=== PATIENT | male | born 1945 | race Asian ===

== ENCOUNTER 2022-12-10 05:18 | Day surgery (SDC) | payer MEDICARE ==
[2022-12-08 12:02] LABS: COVID AG,FIA SOURCE NASAL SWAB
[~2022-12-10] VITALS: Ht 165.1 cm; Wt 63.6 kg
[~2022-12-10 05:18] MED LIST: LOSA1TAB40 PO; METF-446 PO; METO-558 PO; MULT-1203 PO; TAMS-13 PO
[2022-12-10] MEDS ORDERED: EPINEPHrine 1:1,000 [1 MG/ML] VIAL ET ONE (05:19)
[2022-12-10] MEDS ORDERED: TETRACAINE HCL/PF 0.5% 4 ML OPHTHALMIC SOLUTION OD ONE (05:19)
[2022-12-10] MEDS ORDERED: BALANCED SALT 15 ML OPHTHALMIC IRRIG.SOLN IO ONE ×2 (05:19)
[2022-12-10] MEDS ORDERED: EPINEPHrine 1:10,000 [1 MG/10 ML] SYRINGE IVP ONE (05:19)
[2022-12-10] MEDS ORDERED: POVIDONE-IODINE 5% 30 ML OPHTHALMIC SOLUTION OD ONE ×2 (05:19)
[2022-12-10] MEDS ORDERED: LIDOCAINE/PF 1% 2 ML VIAL CAUDAL ONE ×2 (05:19)
[2022-12-10] MEDS ORDERED: CHONDR SULF A SOD/HYALURONATE 1.05 ML KIT IO ONE ×2 (05:19)
[2022-12-10] MEDS ORDERED: RINGERS SOLUTION,LACTATED 500 ML IV ONE ×2 (05:29→07:30)
[2022-12-10] MEDS ORDERED: PHENYLEPHRINE HCL 2.5% 2 ML OPHTHALMIC SOLUTION ONE (05:30)
[2022-12-10] MEDS ORDERED: TROPICAMIDE 1% 2 ML OPHTHALMIC SOLUTION ONE (05:30)
[2022-12-10] MEDS ORDERED: MOXIFLOXACIN HCL 0.5% 3 ML OPHTHALMIC SOLUTION ONE (05:30)
[2022-12-10] MEDS ORDERED: KETOROLAC TROMETHAMINE 0.5% 5 ML OPHTHALMIC SOLUTION ONE (05:30)
[2022-12-10] MEDS: KETOROLAC TROMETHAMINE 0.5% 5 ML OPHTHALMIC SOLUTION OS SCH ×2 (06:24→06:34)
[2022-12-10] MEDS: MOXIFLOXACIN HCL 0.5% 3 ML OPHTHALMIC SOLUTION OS SCH ×2 (06:24→06:34)
[2022-12-10] MEDS: TROPICAMIDE 1% 2 ML OPHTHALMIC SOLUTION OS SCH ×2 (06:24→06:34)
[2022-12-10] MEDS: PHENYLEPHRINE HCL 2.5% 2 ML OPHTHALMIC SOLUTION OS SCH ×2 (06:24→06:34)
[2022-12-10] MEDS ORDERED: ASPI-1444 PO (06:32)
[2022-12-10] MEDS ORDERED: NIFE90TA45 PO (06:32)
[2022-12-10] MEDS ORDERED: METO-408 PO (06:32)
[2022-12-10] MEDS ORDERED: FERR325T23 PO (06:32)
[2022-12-10 06:41] LABS: GLUCOMETER DEV NAME(LOC) SDS.; GLUCOSE,POINT OF CARE 139 MG/DL (70-110)
[2022-12-10] MEDS ORDERED: MIDAZOLAM HCL 2 MG/2 ML VIAL IVP ONE (12:00)
[2022-12-10] MEDS ORDERED: FentaNYL CITRATE PF 100 MCG/2 ML VIAL IVP ONE (12:00)
== END 2022-12-10 08:30 | disposition home or self-care (01) ==
LOC: SURGERY 05:18
PROVIDERS: ATTEND Ophthalmology
DX: E11.36 Type 2 diabetes mellitus with diabetic cataract (principal); H25.12 Age-related nuclear cataract, left eye; I10 Essential (primary) hypertension; Z20.822 Contact with and (suspected) exposure to COVID-19; Z79.899 Other long term (current) drug therapy; Z72.89 Other problems related to lifestyle; Z98.890 Other specified postprocedural states
CPT/HCPCS: 93005; 87426; 66984; 82962; C9803; J0171; J3010; J3490; J2250; Q9967; J7120; V2632